=== PATIENT | female | born 1950 | race American Indian/Alaskan Native ===

== ENCOUNTER 2017-09-24 14:19 | Outpatient (CLI) | payer MEDICARE ==
--- NOTE | 2017-09-24 17:50 | Magnetic Resonance Report ---
MR scan of the cranium was performed without contrast. Pulse sequences included: 1. T1 weighted sagittal and axial images without contrast 2. T2 weighted axial and coronal images 3. FLAIR axial images 4. Diffusion-weighted axial images 5. Apparent diffusion coefficient images 6. T2 gradient echo images. Views of the posterior fossa showed a normal craniocervical junction. Cerebellar pontine angles were normal with normal seventh-eighth nerve complexes. Brainstem and cerebellum were normal. The ventricular system showed no dilatation or distortion. Images of the hemispheres showed no areas of increased or decreased signal. Sinuses, flow voids in the [place] of [place], orbits, pituitary and basal ganglia were normal. Impression: Normal MR scan of the cranium without contrast.
== END 2017-09-24 14:20 | disposition home or self-care (01) ==
LOC: MRI 14:19
PROVIDERS: ATTEND Specialist
DX: R51 Headache (principal)
CPT/HCPCS: 70551